=== PATIENT | female | born 1985 | race Caucasian/White ===

== ENCOUNTER 2020-06-21 11:00 | Emergency (ER) | payer SELFPAY ==
[~2020-06-21] VITALS: Ht 162.6 cm; Wt 125.0 kg
[2020-06-21 11:02] VITALS: BP 123/88
== END 2020-06-21 15:00 | disposition left against medical advice (07) ==
LOC: ER 11:00
DX: R10.9 Unspecified abdominal pain (principal); Z98.890 Other specified postprocedural states; Z53.21 Procedure and treatment not carried out due to patient leaving prior to being seen by health care provider
CPT/HCPCS: 93005